=== PATIENT | male | born 1960 | race Caucasian/White ===

== ENCOUNTER 2022-08-16 06:51 | Observation (INO) | payer OTHER ==
[2022-08-15 09:34] LABS: BASOPHILS % (AUTO) 0.6 % (0.0-5.0); EOSINOPHILS % (AUTO) 1.7 % (0.0-8.0); HEMATOCRIT 51.1 % (42-54); MEAN CORPUSCULAR HGB CONC 31.5 g/dL (32.0-36.0); MEAN CORPUSCULAR VOLUME 88.9 fL (79-99); NEUTROPHILS % (AUTO) 61.1 % (40.0-77.0); PLATELET COUNT (AUTO) 163 K/uL (130-400); RED BLOOD CELL COUNT(AUTO) 5.75 MIL/uL (4.50-6.20); RED CELL DISTRIBUTION WIDTH 13.8 % (11.0-15.5); WHITE BLOOD COUNT (AUTO) 5.4 K/uL (4.8-10.8)
[2022-08-15 09:42] LABS: POTASSIUM 4.4 mmol/L (3.5-5.1)
[2022-08-15 09:45] LABS: INR 0.93 (0.85-1.15); PROTHROMBIN TIME 10.1 SEC (9.6-11.6)
[2022-08-15 09:47] LABS: PARTIAL THROMBOPLASTIN TIME 25.4 SEC (26.3-35.5)
[2022-08-15 10:00] LABS: APPEARANCE,URINE CLEAR (CLEAR); BILIRUBIN,URINE NEGATIVE (NEGATIVE); COLOR,URINE LIGHT-YELLOW (YELLOW); GLUCOSE, URINE (UA) >=1000 mg/dL (NEGATIVE); KETONES,URINE NEGATIVE (NEGATIVE); LEUKOCYTE ESTERASE ,URINE NEGATIVE Leu/uL (NEGATIVE); NITRATE,URINE NEGATIVE (NEGATIVE); OCCULT BLOOD,URINE NEGATIVE (NEGATIVE); PROTEIN,URINE NEGATIVE (NEGATIVE); UROBILINOGEN,URINE 0.2 mg/dL (0.2-1.0)
[2022-08-15 10:05] LABS: RBC,URINE 0-1 /HPF (0-1); WBC,URINE 0-1 /HPF (0-1)
[2022-08-15 10:10] VITALS: BP 114/67
[~2022-08-16] VITALS: Ht 180.3 cm; Wt 68.7 kg
[2022-08-16] VITALS (15 sets, daily range): BP systolic 116–139; BP diastolic 65–79
[~2022-08-16 06:51] MED LIST: ACET-2079 PO; ASPI-1026 PO; ATOR20TA65 PO; CANA300T PO; DIAZ5TAB4 PO; DILT-37 PO; FISH1CAP27 PO; GABA600T10 PO; IBUP-2077 PO; LATA7.5D OU; MAGN500C4 PO; METF-446 PO; PIOG30TA70 PO; UBID1CAP56 PO; VITAMIN B12 PO; VITAMIN D2 PO
[2022-08-16] MEDS ORDERED: 0.9%NACL 1000ML 1,000 ML IV SCH ×2 (08:00→13:00)
[2022-08-16] MEDS ORDERED: DiphenhydrAMINE HCL 50 MG/ML VIAL IVP SCH (08:00)
[2022-08-16] MEDS ORDERED: VERAPAMIL HCL 2.5 MG/ML VIAL ONE (10:40)
[2022-08-16] MEDS ORDERED: NITROGLYCERIN 50MG VIAL ONE (10:40)
[2022-08-16] MEDS ORDERED: HEPARIN 10,000 UNIT/10ML (1,000 UNIT/ML) VIAL ONE (10:40)
[2022-08-16] MEDS ORDERED: IOHEXOL-350 50ML VIAL IV ONE ×2 (10:41→11:52)
[2022-08-16] MEDS ORDERED: MIDAZOLAM HCL 1 MG/ML 2ML VIAL ONE ×2 (10:41→11:14)
[2022-08-16] MEDS ORDERED: LIDOCAINE HCL 400MG/20ML VIAL ONE (10:41)
[2022-08-16] MEDS ORDERED: IOHEXOL 350 MG/ML 100ML INFUS..BTL IV ONE (10:41)
[2022-08-16] MEDS ORDERED: FENTANYL CITRATE PF 50 MCG/1 ML 2ML VIAL ONE ×2 (10:42→12:22)
[2022-08-16] MEDS ORDERED: BIVALIRUDIN 250 MG/VIAL IV ONE ×2 (11:29→12:11)
[2022-08-16] MEDS ORDERED: IOHEXOL-350 75 ML VIAL IV ONE ×2 (11:59→12:15)
[2022-08-16] MEDS ORDERED: ASPIRIN 81MG CHEW TAB ONE (12:25)
[2022-08-16] MEDS ORDERED: CLOPIDOGREL 300MG TAB ONE (12:26)
[2022-08-16] MEDS ORDERED: METOPROLOL TARTRATE 1 MG/ML 5ML VIAL IV ONE (12:33)
[2022-08-16] MEDS ORDERED: IBUPROFEN 800 MG TAB PO PRN (13:00)
[2022-08-16] MEDS ORDERED: ACETAMINOPHEN 325 MG TAB PO PRN (13:00)
[2022-08-16] MEDS ORDERED: ONDANSETRON 4MG INJ IVP PRN (13:00)
[2022-08-16] MEDS ORDERED: GLUCAGON 1MG KIT 1 MG ML IM PRN (13:00)
[2022-08-16] MEDS ORDERED: DEXTROSE 50%-WATER 50 ML DISP.SYRIN IV PRN (13:00)
[2022-08-16] MEDS ORDERED: ACETAMINOPHEN WITH CODEINE 1 TAB TAB PO PRN (13:00)
[2022-08-16] MEDS ORDERED: ACETAMINOPHEN WITH CODEINE 1 TAB TAB ONE (13:18)
[2022-08-16] MEDS: INSULIN HUMULIN R 100 UNIT/ML 3ML SQ SCH ×2 (16:30→21:54)
[2022-08-16] MEDS ORDERED: METOPROLOL TARTRATE 25 MG TAB PO SCH (18:30)
[2022-08-16] MEDS: PHARMACY COMMUNICATION MISC SCH ×2 (20:00→22:00)
[2022-08-16] MEDS ORDERED: DIAZEPAM 5 MG TABLET PO SCH (21:00)
[2022-08-16] MEDS ORDERED: FISH OIL 1000 MG/CAP PO SCH (21:00)
[2022-08-16] MEDS ORDERED: GABAPENTIN 300 MG CAPSULE PO SCH (21:00)
[2022-08-16] MEDS ORDERED: LATANOPROST 2.5 ML DROPS OU SCH (21:00)
[2022-08-17 00:40] VITALS: BP 127/74
[2022-08-17] MEDS: PHARMACY COMMUNICATION MISC SCH ×7 (02:00→12:00)
[2022-08-17 03:03] VITALS: BP 118/55
[2022-08-17 04:00] LABS: HEMATOCRIT 46.7 % (42-54); MEAN CORPUSCULAR HEMOGLOBIN 28.6 pg (27.0-33.0); MEAN CORPUSCULAR VOLUME 86.6 fL (79-99); RED BLOOD CELL COUNT(AUTO) 5.39 MIL/uL (4.50-6.20); RED CELL DISTRIBUTION WIDTH 13.7 % (11.0-15.5); WHITE BLOOD COUNT (AUTO) 6.3 K/uL (4.8-10.8)
[2022-08-17 04:07] LABS: POTASSIUM 3.6 mmol/L (3.5-5.1)
[2022-08-17] MEDS: INSULIN HUMULIN R 100 UNIT/ML 3ML SQ SCH ×2 (07:00→12:14)
[2022-08-17] MEDS ORDERED: IBUPROFEN 800 MG TAB PO PRN (07:00)
[2022-08-17 08:30] VITALS: BP 122/87
[2022-08-17] MEDS ORDERED: DILTIAZEM 180MG SR CAP PO SCH (09:00)
[2022-08-17] MEDS ORDERED: METOPROLOL TARTRATE 25 MG TAB PO SCH (09:00)
[2022-08-17] MEDS ORDERED: CLOPIDOGREL 75MG TAB PO SCH (09:00)
[2022-08-17] MEDS ORDERED: PIOGLITAZONE 30MG TAB PO SCH (09:00)
[2022-08-17] MEDS ORDERED: CYANOCOBALAMIN (VITAMIN B-12) 1,000 MCG TABLET PO SCH (09:00)
[2022-08-17] MEDS ORDERED: ATORVASTATIN 20 MG TABLET PO SCH (09:00)
[2022-08-17] MEDS ORDERED: ASPIRIN 81MG CHEW TAB PO SCH (09:00)
[2022-08-17] MEDS: GABAPENTIN 300 MG CAPSULE PO SCH ×2 (09:35→09:44)
[2022-08-17] MEDS ORDERED: ATOR40TA69 PO (10:32)
[2022-08-17] MEDS ORDERED: ALBUHFA IH (10:35)
[2022-08-17 12:40] VITALS: BP 128/71
[2022-08-17] MEDS ORDERED: DIAZEPAM 5 MG TABLET PO SCH (21:00)
[2022-08-17] MEDS ORDERED: FISH OIL 1000 MG/CAP PO SCH (21:00)
[2022-08-22] MEDS ORDERED: ERGOCALCIFEROL (VITAMIN D2) 50,000 UNIT CAPSULE PO SCH (09:00)
== END 2022-08-17 14:30 | disposition home or self-care (01) ==
LOC: DAH 06:51 → DAHIP 06:52 → DAH 06:52 → 2DH 15:26
PROVIDERS: ADMIT Internal Medicine Pulmonary Disease; ATTEND Internal Medicine Pulmonary Disease
DX: I25.10 Atherosclerotic heart disease of native coronary artery without angina pectoris (principal); I10 Essential (primary) hypertension; E11.9 Type 2 diabetes mellitus without complications; E78.5 Hyperlipidemia, unspecified; J44.9 Chronic obstructive pulmonary disease, unspecified; Z87.442 Personal history of urinary calculi; Z95.5 Presence of coronary angioplasty implant and graft; Z79.899 Other long term (current) drug therapy
CPT/HCPCS: 80048 ×2; 85025; 85610; 85730; 81001; 36415 ×2; 93005 ×2; 93458; 96372 ×2; 96374; 82948 ×6; 85027; 71045; C1894 ×3; C1887; C1769 ×3; C1760; C1874; C1725 ×2; Q9965 ×2; G0378 ×25; J1200; J3010 ×2; J3490 ×4; J7030 ×2; J1644 ×3; J2250 ×2; J0583 ×2; Q9967 ×5; J1815 ×2; A4215; A4223 ×3; A4222; A4221; A4663; A4216; A4606; C9600; 99156; 99157